=== PATIENT | female | born 1995 | race Caucasian/White ===

== ENCOUNTER 2018-03-06 22:43 | Emergency (ER) | payer MEDICAID, SELFPAY ==
[2018-03-06 22:44] VITALS: BP 141/75; PULSE 74; RESP 14; TEMP 36.2; O2SAT 99; BMI 36.1
--- NOTE | 2018-03-06 23:41 | ED.DCSUM_ITS ---
- ER Visit Summary Date of Service: 03/06/18 Chief Complaint: Pelvic pain History of Present Illness: The patient is a 22 F no senior past medical history no prior pelvic or abdominal surgery. States she had a regular. It finished about 3 days ago. Today had some intermittent mild vaginal bleeding with some cramping. No dysuria. States she cannot be . Denies any discharge. Denies nausea, vomiting or diarrhea. No constipation. No dysuria. No abdominal trauma. Denies any fever. Physical Examination: Young female no acute distress. Vital signs are stable afebrile. H EENT exam unremarkable. Lungs clear to auscultation bilaterally. Heart regular rate and rhythm no murmur. Abdomen soft, nontender, nondistended normal bowel sounds no peritoneal signs. No hernias or masses. She points to the suprapubic region of where her pain is but is not reproducibly tender. Right lower quadrant and right upper quadrant was completely unremarkable and nontender. No signs of abdominal trauma. Normal bowel sounds. Moving all 4 extremities. Neurovascularly intact. Test Results: Urinalysis shows no signs of infection. Urine test is negative. Emergency Department Course and Treatment: Repeat exam patient is doing well at 00 43. She was offered but deferred a pelvic exam. She requested a work excuse. Treatment Plan: Refer to Dr. Oscar Santos local [facility] for follow-up. Disposition: Discharge Impression: Acute pelvic pain of uncertain etiology This note was generated with [employer] dictation software. It may contain incorrect words, spelling, and punctuation that were not noted in review of the chart prior to signing ED Disposition - Plan for ED Patient: Chief Complaint: Abd Pain Referrals: Care Physician,No Primary [Primary Care Provider] -
[2018-03-07 00:06] LABS: Bacteria 0 SEEN /hpf (None Seen); Mucous, Urine 0 SEEN /hpf (<or=2+); Red Blood Cells-Urine 0 SEEN /hpf (0-5); Squamous Epithelial Cells - UA 0 SEEN /hpf (5-10); White Blood Cells 0 SEEN /hpf (0-5)
[2018-03-07 00:09] LABS: Internal QC Validated? YES +Cl - CLEAR BKGD; Pregnancy, Urine Negative Negative
[2018-03-07 00:21] LABS: Color, Urine Yellow (Yellow); Urine Clarity Clear (Clear)
[2018-03-07 00:22] LABS: Glucose, Dipstick NEGATIVE (Normal); Ketone-Dipstick Negative (Negative); Leukocyte Esterase-Dipstick Negative /ul (Negative); Nitrite-Dipstick Negative (Negative); Occult Blood-Urine 50 /ul (Negative); Protein-Dipstick Negative (Negative); Urine Bilirubin Dipstick Negative (Negative); Urine Urobilinogen Normal (Normal); Urine pH 6.5 (5.0 - 8.0)
--- NOTE | 2018-03-07 00:47 | DCINST.ED_ITS ---
ED Disposition - Plan for ED Patient: Disposition: Home or Assisted Living Chief Complaint: Abd Pain Instructions: ED Pelvic Pain [facility] Referrals: Oscar Santos MD [STAFF PHYSICIAN] - As soon as possible Additional Instructions: Call follow-up with RECOVERY ANALYST physician if not feeling better. Tylenol and Motrin for pain.
[2018-03-07 00:53] VITALS: BP 136/88; PULSE 78; RESP 16; O2SAT 98
== END 2018-03-07 00:54 | disposition home or self-care (01) ==
PROVIDERS: Emergency Provider Emergency Medicine
DX: R10.2 Pelvic and perineal pain (principal)
CPT/HCPCS: 81001; 81025; 99282

== ENCOUNTER 2018-11-16 11:26 | Emergency (ER) | payer SELFPAY ==
[2018-11-16 11:29] VITALS: BP 141/98; PULSE 82; RESP 16; TEMP 36.6; O2SAT 97; BMI 36.5
--- NOTE | 2018-11-16 11:48 | CM.ED ---
SOCIAL WORK NOTE DISCUSSED PT'S CASE WITH DR. FITZGERALD. PT BROUGHT IN BY PD AFTER FRIEND CONTACTED THE [facility] WITH CONCERNS PT MAY HARM SELF. UPON PD ARRIVING TO HOME, PT SLEEPING. PT DENIES ANY SUICIDAL OR HOMICIDAL IDEATIONS TO STAFF. DR. FITZGERALD REPORTS [facility] TO BE IN TO SEE PT. TRANSPLANT NURSE NOT NEEDED FOR ASSESSMENT. MADHAVI HANLEY, MEASUREMENT COORDINATOR, NURSE INFORMATICS EDUCATOR
--- NOTE | 2018-11-16 11:50 | ED.VISSUMM ---
- ER Visit Summary Date of Service: 11/16/18 Chief Complaint: Mental health History of Present Illness: The patient is a 23 F presents to the emergency department by myranda. The patient has a history of bipolar disorder. She has not on any medications. She states that she worked a 15-hour day yesterday. She went home and turned her phone off. A friend from out [place] was trying to get in touch with her but her phone was off. Her friend apparently called police and was worried that the patient was going to harm herself. The police actually kicked in her door. The patient states she was asleep. She states she made no threats. She is up and hospitalized in over a year. She denies being suicidal homicidal. She states that she actually showed police her text messages and there was no threatening messages. She did agree to come in for evaluation. They had already called crisis for evaluation. She denies any drug or alcohol use. Physical Examination: Vital signs reviewed General: Well-nourished, well-developed Head: Normocephalic, atraumatic Eyes: Pupils equal and reactive, extraocular muscles intact Neck, supple, no lymphadenopathy Heart: Regular rate and rhythm Respiratory: No distress, clear bilaterally Abdomen: Soft, nontender, nondistended, no peritoneal signs Back: Nontender Extremities: Nontender, no edema, no cords Skin: Normal color no rash Neuro: Alert and oriented, no focal or lateralizing deficits Test Results: [] Emergency Department Course and Treatment: The patient presents with no complaints. She frankly denies being suicidal or homicidal. She has no plan of self-harm. She does feel safe. Screening labs were obtained and are unremarkable. The patient is known to the crisis counseling center, she will be divided by crisis. Disposition is pending. Prior to being evaluated by crisis, the patient had eloped. She was not under a psychiatric hold. She was not suicidal or homicidal. She did feel safe at home. She was told if she had any worsening symptoms to return. Treatment Plan: [] Disposition: Pending Impression: 1. History of bipolar disorder This note was generated with [employer] dictation software. It may contain incorrect words, spelling, and punctuation that were not noted in review of the chart prior to signing ED Disposition - Plan for ED Patient: Referrals: Care Physician,No Primary [Primary Care Provider] -
[2018-11-16 12:03] LABS: Amphetamine Urine VISTA NEGATIVE (<1000 ng/mL); Barbiturate Urine VISTA NEGATIVE (< 200 ng/mL); Benzodiazepine Urine VISTA NEGATIVE (< 200 ng/mL); Cocaine Urine VISTA NEGATIVE (< 300 ng/mL); Ecstacy Urine VISTA NEGATIVE (< 500 ng/mL); Methadone Urine VISTA NEGATIVE (< 300 ng/mL); PCP Urine VISTA NEGATIVE (< 25 ng/mL); THC Urine VISTA POSITIVE (< 50 ng/mL); Vista UDS pH Range 5
[2018-11-16 12:09] LABS: Absolute Lymphocyte Count 1.25 X10^3/ul (0.83-4.51); Absolute Neutrophil Count 3.3 X10^3/uL (2.0-7.7); Basophil# 0.02 X10^3/uL; Basophil% 0.4 % (0-1); Hematocrit 40.9 % (37-47); Hemoglobin 13.3 g/dl (12.0-15.0); Lymphocyte # 1.25 X10^3/ul (4.0); Lymphocyte % 24.5 % (19-41); Mean Corp Hgb Conc 32.5 g/gl (32-36); Mean Corpuscular Hgb 28.5 pg (27.0-32.0); Mean Corpuscular Volume 87.8 fL (81-99); Mean Platelet Vol. 10.8 fl (6.2-12.0); Monocyte# 0.38 X10^3/uL; Monocyte% 7.5 % (0-10); Neutrophil # 3.34 X10^3/uL (2.7-7.7); Neutrophil % 65.4 % (47-70); Platelet Count 270 K/mm3 (150-450); RBC Distribution Width CV 13.7 % (11.6-14.6); Red Blood Count 4.66 M/mm3 (4.2-5.4); White Blood Count 5.1 K/mm3 (4.4-11.0)
[2018-11-16 12:10] LABS: POSITIVE COUNT NO; POSITIVE DIFFERENTIAL NO; POSITIVE MORPHOLOGY NO
[2018-11-16 12:19] LABS: Anion Gap 7 (5-15); BUN 11 mg/dL (7-18); BUN/Creat Ratio 15.6 RATIO (10-20); Calcium,Total 8.8 mg/dL (8.5-10.1); Chloride 108 mmol/L (98-107); Creatinine, Serum 0.71 mg/dL (0.55-1.02); EST Glomerular Filtration Rate 110 mL/min (>60); Est Glom Filt Rate - Afr Amer 133 mL/min (>60); Estimated Creatinine Clearance 125.38 ml/min; Glucose 91 mg/dL (74-106); Potassium 3.8 mmol/L (3.5-5.1); Sodium Level 138 mmol/L (136-145)
[2018-11-16 12:50] LABS: Alcohol, Blood (Medical)-Serum < 3.0 mg/dL
[2018-11-16 12:58] LABS: Pregnancy, Serum, hCG Quali. NEGATIVE Negative (0-9 Nonpreg)
[2018-11-16 13:35] VITALS: RESP 18
== END 2018-11-16 15:14 | disposition home or self-care (01) ==
LOC: ED 12:29
PROVIDERS: Emergency Provider Emergency Medicine
DX: F31.9 Bipolar disorder, unspecified (principal)
CPT/HCPCS: 36415; 80048; 80307; 80320; 84703; 85025; 99283; G0480